=== PATIENT | female | born 1945 | race Two or more races ===

== ENCOUNTER 2017-08-27 18:10 | Inpatient (IN) | payer MEDICARE, MEDICAID ==
[~2017-08-27] VITALS: Ht 152.4 cm; Wt 57.9 kg
[2017-08-27 19:46] LABS: Albumin 3.4 g/dL (3.4-5.0); BUN/Creatinine Ratio 21.3; Calcium 8.6 mg/dL (8.5-10.1); Potassium 3.7 mmol/L (3.5-5.1)
[2017-08-27 19:47] LABS: Basophils # (auto) 0 uL; Hemoglobin 9.4 g/dL (12.2-16.2); Neutrophils # (auto) 5.9 uL; Nucleated Red Blood Cells % 0.1 %; Red Cell Distribution Width 13.7 % (11.8-14.3)
[2017-08-27 19:49] LABS: Bilirubin, Total 0.2 mg/dL (0.2-1.0); Total Protein 7.7 g/dL (6.4-8.2)
[2017-08-27 19:57] LABS: Basophils % (auto) 0.5 % (0.0-2.0); Eosinophils # (auto) 0.1 uL; Eosinophils % (auto) 1.3 % (0.0-7.0); Hematocrit 27.4 % (36.0-46.0); Lymphocytes # (auto) 1.4 uL; Lymphocytes % (auto) 17.5 % (10.0-50.0); Mean Corpuscular Hemoglobin 31.6 pg (28.0-32.0); Mean Corpuscular Hgb Conc. 34.4 g/dL (32.0-36.0); Mean Corpuscular Volume 91.8 fL (80.0-100.0); Monocytes # (auto) 0.3 uL; Monocytes % (auto) 4.2 % (0.0-12.0); Neutrophils % (auto) 76.5 % (37.0-80.0); Platelet Count (auto) 134 10^3/uL (140-450); Red Blood Cells 2.98 10^6/uL (4.0-5.20); White Blood Cell 7.7 10^3/uL (4.4-10.8)
[2017-08-28] MEDS ORDERED: HYDROcodone-ACET 5/325MG TAB PO PRN (09:30)
[2017-08-28] MEDS ORDERED: ONDANSETRON HCL 4 MG/2 ML VIAL IV PRN (09:30)
[2017-08-28] MEDS ORDERED: cefTRIAXone 1GM/10ml IVPUSH 10 ML IV ONE (09:30)
[2017-08-28] MEDS ORDERED: TEMAZEPAM 15 MG CAP PO PRN (09:30)
[2017-08-28] MEDS ORDERED: metroNIDAZOLE 500MG/100ML 100 ML IV ONE (09:30)
[2017-08-28] MEDS ORDERED: NITROGLYCERIN 0.4 MG SL TAB SL PRN (09:30)
[2017-08-28] MEDS ORDERED: ACETAMINOPHEN 325 MG TAB PO PRN (09:30)
[2017-08-28] MEDS ORDERED: DOCUSATE SOD 100 MG CAP PO PRN (09:30)
[2017-08-28] MEDS ORDERED: MORPHINE SULF INJ 2 MG/ML SYRINGE 1ML IV PRN ×2 (09:30)
[2017-08-28] MEDS ORDERED: DEXTROSE (50%) 50ML SYRG IV PRN (09:45)
[2017-08-28] MEDS ORDERED: cloNIDine HCL 0.1 MG TAB PO PRN (09:45)
[2017-08-28] MEDS ORDERED: LORazepam 0.5 MG TAB PO PRN (09:45)
[2017-08-28] MEDS ORDERED: FAMOTIDINE 20 MG TAB PO SCH (10:00)
[2017-08-28] MEDS: LOSARTAN POTASSIUM 50 MG TAB PO SCH (11:21)
[2017-08-28] MEDS: cloNIDine HCL 0.1 MG TAB PO SCH ×2 (11:21→21:41)
[2017-08-28] MEDS: ASPirin-EC 325mg tab PO SCH (11:22)
[2017-08-28] MEDS: HCTZ 25 MG TAB PO SCH (11:23)
[2017-08-28] MEDS: amLODIPine BESYLATE 5 MG TAB PO SCH (11:25)
[2017-08-28] MEDS: PANTOPRAZOLE 40 MG TAB PO SCH (11:26)
[2017-08-28] MEDS: InsuLIN REG 1unit/0.01ml Soln (100units/ml) SC SCH ×3 (11:30→22:22)
[2017-08-28] MEDS: ISOSORBIDE MONONITRATE 60 MG TAB PO SCH (11:31)
[2017-08-28] MEDS: POTASSIUM CHLORIDE 8 MEQ TAB PO SCH (11:32)
[2017-08-28] MEDS: MULTIPLE VITAMIN TAB PO SCH (11:32)
[2017-08-28] MEDS: FUROSEMIDE 20 MG TAB PO SCH (11:33)
[2017-08-28] MEDS: METOPROLOL SUCCINATE XL 50 MG TAB PO SCH (11:33)
[2017-08-28] MEDS: B-COMPLEX W/ C & FOLIC ACID(NEPHROVITE TAB) PO SCH (11:34)
[2017-08-28] MEDS: ACCU-CHEK COMFORT CURVE STRIP VI SCH ×3 (11:45→21:43)
[2017-08-28] MEDS: SODIUM CHLOR 0.9% PF (SALINE LOCK) 10ML VIAL IV SCH ×2 (14:00→21:41)
[2017-08-28 14:09] VITALS: BP 150/58
[2017-08-28 14:36] VITALS: BP 150/58
[2017-08-28] MEDS: hydrALAZINE HCL 25 MG TAB PO SCH ×2 (16:20→21:41)
[2017-08-28] MEDS: metroNIDAZOLE 500MG/100ML 100 ML IV SCH ×2 (16:20→21:39)
[2017-08-28 17:12] VITALS: BP 138/56
[2017-08-28] MEDS: FERROUS SULFATE 325 MG TAB PO SCH (17:55)
[2017-08-28] MEDS: PRAVASTATIN SODIUM 20 MG TAB PO SCH (21:39)
[2017-08-28 22:08] LABS: Urine Bacteria NONE SEEN /hpf (None Seen); Urine Blood Negative /uL (Negative); Urine Specific Gravity 1.009 (1.001-1.035); Urine WBC 2 /hpf (0 - 5)
[2017-08-28 22:17] VITALS: BP 121/58
[2017-08-29 05:03] VITALS: BP 128/79
[2017-08-29] MEDS: hydrALAZINE HCL 25 MG TAB PO SCH ×3 (06:06→22:21)
[2017-08-29] MEDS: metroNIDAZOLE 500MG/100ML 100 ML IV SCH ×3 (06:06→22:09)
[2017-08-29] MEDS: SODIUM CHLOR 0.9% PF (SALINE LOCK) 10ML VIAL IV SCH ×3 (06:08→22:21)
[2017-08-29 06:41] LABS: Potassium 4.6 mmol/L (3.5-5.1)
[2017-08-29 06:44] LABS: BUN/Creatinine Ratio 20.9; Calcium 8.4 mg/dL (8.5-10.1)
[2017-08-29 06:46] LABS: Bilirubin, Total 0.2 mg/dL (0.2-1.0); Total Protein 6.9 g/dL (6.4-8.2)
[2017-08-29] MEDS: InsuLIN REG 1unit/0.01ml Soln (100units/ml) SC SCH ×4 (07:00→22:22)
[2017-08-29] MEDS: ACCU-CHEK COMFORT CURVE STRIP VI SCH ×4 (07:20→22:22)
[2017-08-29 07:45] LABS: Basophils # (auto) 0 uL; Basophils % (auto) 0.3 % (0.0-2.0); Eosinophils # (auto) 0.1 uL; Hematocrit 27.4 % (36.0-46.0); Hemoglobin 9.4 g/dL (12.2-16.2); Lymphocytes # (auto) 0.7 uL; Lymphocytes % (auto) 8.3 % (10.0-50.0); Mean Corpuscular Hemoglobin 31.8 pg (28.0-32.0); Mean Corpuscular Hgb Conc. 34.4 g/dL (32.0-36.0); Mean Corpuscular Volume 92.3 fL (80.0-100.0); Monocytes # (auto) 0.4 uL; Monocytes % (auto) 4.7 % (0.0-12.0); Neutrophils # (auto) 7.1 uL; Neutrophils % (auto) 85.7 % (37.0-80.0); Platelet Count (auto) 119 10^3/uL (140-450); Red Blood Cells 2.97 10^6/uL (4.0-5.20); Red Cell Distribution Width 13.5 % (11.8-14.3); White Blood Cell 8.3 10^3/uL (4.4-10.8)
[2017-08-29] MEDS: FERROUS SULFATE 325 MG TAB PO SCH ×2 (08:31→17:35)
[2017-08-29 09:08] VITALS: BP 129/38
[2017-08-29] MEDS: METOPROLOL SUCCINATE XL 50 MG TAB PO SCH (10:00)
[2017-08-29] MEDS: MULTIPLE VITAMIN TAB PO SCH (10:20)
[2017-08-29] MEDS: cefTRIAXone 1GM/10ml IVPUSH 10 ML IV SCH (10:20)
[2017-08-29] MEDS: HCTZ 25 MG TAB PO SCH (10:21)
[2017-08-29] MEDS: LOSARTAN POTASSIUM 50 MG TAB PO SCH (10:22)
[2017-08-29] MEDS: cloNIDine HCL 0.1 MG TAB PO SCH ×2 (10:22→22:21)
[2017-08-29] MEDS: amLODIPine BESYLATE 5 MG TAB PO SCH (10:23)
[2017-08-29] MEDS: FUROSEMIDE 20 MG TAB PO SCH (10:23)
[2017-08-29] MEDS: PANTOPRAZOLE 40 MG TAB PO SCH (10:23)
[2017-08-29] MEDS: B-COMPLEX W/ C & FOLIC ACID(NEPHROVITE TAB) PO SCH (10:23)
[2017-08-29] MEDS: ISOSORBIDE MONONITRATE 60 MG TAB PO SCH (10:24)
[2017-08-29] MEDS: POTASSIUM CHLORIDE 8 MEQ TAB PO SCH (10:24)
[2017-08-29] MEDS: ASPirin-EC 325mg tab PO SCH (10:26)
[2017-08-29] MEDS: Boost Glucose Control 8 Ounces PO SCH ×2 (12:00→17:37)
[2017-08-29 12:20] VITALS: BP 153/48
[2017-08-29 17:40] VITALS: BP 120/45
[2017-08-29 22:12] VITALS: BP 121/51
[2017-08-29] MEDS: PRAVASTATIN SODIUM 20 MG TAB PO SCH (22:22)
[2017-08-30 05:19] VITALS: BP 130/50
[2017-08-30] MEDS: metroNIDAZOLE 500MG/100ML 100 ML IV SCH (05:44)
[2017-08-30] MEDS: hydrALAZINE HCL 25 MG TAB PO SCH (05:44)
[2017-08-30] MEDS: SODIUM CHLOR 0.9% PF (SALINE LOCK) 10ML VIAL IV SCH (05:44)
[2017-08-30] MEDS: InsuLIN REG 1unit/0.01ml Soln (100units/ml) SC SCH (05:57)
[2017-08-30] MEDS: ACCU-CHEK COMFORT CURVE STRIP VI SCH (05:57)
[2017-08-30 06:42] LABS: Basophils # (auto) 0 uL; Basophils % (auto) 0.5 % (0.0-2.0); Eosinophils # (auto) 0.2 uL; Eosinophils % (auto) 3.9 % (0.0-7.0); Lymphocytes # (auto) 1.8 uL; Monocytes # (auto) 0.3 uL; Red Cell Distribution Width 13.4 % (11.8-14.3)
[2017-08-30 06:47] LABS: Hematocrit 24.1 % (36.0-46.0); Hemoglobin 8.4 g/dL (12.2-16.2); Lymphocytes % (auto) 33.2 % (10.0-50.0); Mean Corpuscular Hemoglobin 32.2 pg (28.0-32.0); Mean Corpuscular Hgb Conc. 34.8 g/dL (32.0-36.0); Mean Corpuscular Volume 92.5 fL (80.0-100.0); Monocytes % (auto) 6.1 % (0.0-12.0); Neutrophils # (auto) 3.1 uL; Neutrophils % (auto) 56.3 % (37.0-80.0); Nucleated Red Blood Cells % 0.1 %; Platelet Count (auto) 99 10^3/uL (140-450); Red Blood Cells 2.61 10^6/uL (4.0-5.20); White Blood Cell 5.5 10^3/uL (4.4-10.8)
[2017-08-30 06:55] LABS: Albumin 2.8 g/dL (3.4-5.0); BUN/Creatinine Ratio 20.2; Bilirubin, Total 0.2 mg/dL (0.2-1.0); Calcium 7.9 mg/dL (8.5-10.1); Potassium 3.9 mmol/L (3.5-5.1); Total Protein 6.4 g/dL (6.4-8.2)
[2017-08-30 08:00] VITALS: BP 153/59
[2017-08-30] MEDS: Boost Glucose Control 8 Ounces PO SCH (08:00)
[2017-08-30] MEDS: FERROUS SULFATE 325 MG TAB PO SCH (08:42)
[2017-08-30 09:01] VITALS: BP 140/54
[2017-08-30] MEDS: cefTRIAXone 1GM/10ml IVPUSH 10 ML IV SCH (09:22)
[2017-08-30] MEDS: MULTIPLE VITAMIN TAB PO SCH (10:52)
[2017-08-30] MEDS: POTASSIUM CHLORIDE 8 MEQ TAB PO SCH (10:52)
[2017-08-30] MEDS: B-COMPLEX W/ C & FOLIC ACID(NEPHROVITE TAB) PO SCH (10:52)
[2017-08-30] MEDS: PANTOPRAZOLE 40 MG TAB PO SCH (10:53)
[2017-08-30] MEDS: FUROSEMIDE 20 MG TAB PO SCH (10:53)
[2017-08-30] MEDS: ISOSORBIDE MONONITRATE 60 MG TAB PO SCH (10:54)
[2017-08-30] MEDS: LOSARTAN POTASSIUM 50 MG TAB PO SCH (10:55)
[2017-08-30] MEDS: HCTZ 25 MG TAB PO SCH (10:55)
[2017-08-30] MEDS: METOPROLOL SUCCINATE XL 50 MG TAB PO SCH (10:56)
[2017-08-30 12:51] VITALS: BP 153/58
[2017-08-30 13:00] VITALS: BP 146/66
== END 2017-08-30 17:00 | disposition home or self-care (01) | DRG 244 ==
LOC: ER 18:31 → TELE 18:32 → TELE-EAST 08-28 13:53
PROVIDERS: ADMIT Internal Medicine; ATTEND Internal Medicine
DX: K57.30 Diverticulosis of large intestine without perforation or abscess without bleeding (principal); E44.0 Moderate protein-calorie malnutrition; N18.4 Chronic kidney disease, stage 4 (severe); D69.6 Thrombocytopenia, unspecified; E11.21 Type 2 diabetes mellitus with diabetic nephropathy; N17.9 Acute kidney failure, unspecified; E11.22 Type 2 diabetes mellitus with diabetic chronic kidney disease; E11.65 Type 2 diabetes mellitus with hyperglycemia; I12.9 Hypertensive chronic kidney disease with stage 1 through stage 4 chronic kidney disease, or unspecified chronic kidney disease; D63.8 Anemia in other chronic diseases classified elsewhere; E61.1 Iron deficiency; K92.1 Melena; E78.5 Hyperlipidemia, unspecified; I25.10 Atherosclerotic heart disease of native coronary artery without angina pectoris; I70.0 Atherosclerosis of aorta; I08.0 Rheumatic disorders of both mitral and aortic valves; J98.11 Atelectasis; K57.32 Diverticulitis of large intestine without perforation or abscess without bleeding; I69.331 Monoplegia of upper limb following cerebral infarction affecting right dominant side; Z79.82 Long term (current) use of aspirin; Z79.899 Other long term (current) drug therapy; Z68.24 Body mass index [BMI] 24.0-24.9, adult
CPT/HCPCS: 36415; 70450; 71045; 74176; 80053; 81001; 82962; 83036; 83690; 85025; 87040; 87086; 93005; 93306; 96365; 96375; J1815; J3490